=== PATIENT | male | born 1965 | race Caucasian/White ===

== ENCOUNTER → 2017-07-23 | Outpatient (CLI) | payer BC ==
[~2017-07-23] MED LIST: CLEOCIN300 MG PO; COUMADIN1 MG PO; COUMADIN10 MG PO; Colace PO; DOXYCYCLINE HY100 M1 PO; LOVENOX80 MG/0.8 SC; TYLENOL WITH C1 EACH PO; Tessalon Perle PO; VICODIN 5-3001 EACH PO
== END | disposition home or self-care (01) ==
LOC: CDC 09:35
DX: Z01.810 Encounter for preprocedural cardiovascular examination (principal); K42.0 Umbilical hernia with obstruction, without gangrene; I45.4 Nonspecific intraventricular block
CPT/HCPCS: 93000

== ENCOUNTER 2017-07-30 05:28 | Day surgery (SDC) | payer BC ==
[~2017-07-30] VITALS: Ht 190.5 cm; Wt 145.5 kg
[2017-07-30 06:21] VITALS: BP 113/79
[2017-07-30] MEDS ORDERED: NORCO 5/3251 TABLET PO (09:40)
[2017-07-30 10:42] VITALS: BP 124/82
[2017-07-30 11:15] VITALS: BP 124/82
== END 2017-07-30 11:37 | disposition home or self-care (01) ==
LOC: SDC
PROC: 0WUF4JZ Supplement Abdominal Wall with Synthetic Substitute, Percutaneous Endoscopic Approach (ICD-10-PCS; principal; 2017-07-30)
DX: K43.9 Ventral hernia without obstruction or gangrene (principal); E66.01 Morbid (severe) obesity due to excess calories; Z68.41 Body mass index [BMI] 40.0-44.9, adult; I87.2 Venous insufficiency (chronic) (peripheral); D68.59 Other primary thrombophilia; Z85.820 Personal history of malignant melanoma of skin; Z79.01 Long term (current) use of anticoagulants; Z86.718 Personal history of other venous thrombosis and embolism
CPT/HCPCS: C1781; J0131; J0330; J0690; J1100; J1170; J1885; J2405; J2710; S0020